=== PATIENT | female | born 1955 | race Hispanic/Latino ===

== ENCOUNTER → 2020-07-27 | Outpatient (CLI) | payer MEDICARE, SELFPAY ==
[2016-09-01 00:48] VITALS: BMI 30.8
--- NOTE | 2020-07-27 12:31 | BON_PTH ---
PATIENT: CHELO SAUCEDO LOC: [facility] U#:[id number] AGE/SX: 65/F ROOM: RE07/27/[address]: Dr. Mike Adams MD : 1955 BED: DIS: 07/27/2020 SPEC #: [id number] RECD: 07/27/20 14:58 STATUS: ALL REJt #: [id number] CHELITA: 07/27/20 12:[address]: Mike Adams DEPT: SURGICAL PATHOLOGY RECD BY: Naomie Bueno ENTERED: 07/28/20 09:35 SP TYPE: Bone OTHR DR: TERENCE Tissues: Vertebra, NOS Procedures: Decalcification bone/plaque Surgery Specimen Level V HEADER OPERATION: Kyphoplasty at L3 PRE-OP DIAGNOSIS: Compression fracture lumbar spine TISSUE SUBMITTED: Bone L3 MICROSCOPIC DIAGNOSIS Bone of L3, core biopsy: Consistent with organizing fracture site. Trilineage hematopoiesis. AM:chandler 07/29/20 MICROSCOPIC DESCRIPTION Slides are reviewed. GROSS DESCRIPTION Received is one container labeled with the patient's name and not further designated. The specimen consists of scant fragments of blood clot measuring in aggregate 1 x 0.3 x <0.1 cm. No bony tissue is identified. The entire specimen is submitted in one cassette after decalcification. / SJ:chandler 07/28/20 TC:5 CPT: 34789, 51009
== END | disposition home or self-care (01) ==
LOC: LABSPEC 16:34
PROVIDERS: Visit Provider Anesthesiology Pain Medicine
DX: M48.56XA Collapsed vertebra, not elsewhere classified, lumbar region, initial encounter for fracture (principal)
CPT/HCPCS: 88305; 88307; 88311